=== PATIENT | male | born 1995 | race Caucasian/White ===

== ENCOUNTER 2023-04-20 17:03 | Emergency (ER) | payer SELFPAY ==
[2023-04-20 17:32] VITALS: TEMP 98.1; BMI 24.3
[2023-04-20] MEDS ORDERED: ACETAMINOPHEN 1000 MG/100 ML BAG IVPB ONE (17:57)
[2023-04-20 18:29] LABS: BASO % 0.3 % (0-2.0); EOS % 0.1 % (0-4.5); HEMATOCRIT 45.8 % (35.4-49); HEMOGLOBIN 15.8 GM/dL (11.7-16.9); LYMPH % 11.6 % (8-40); MCH 30.7 pg (25.7-33.7); MCHC 34.4 g/dl (32.0-35.9); MEAN CELL VOLUME 89.2 fl (80-96); MEAN PLT VOLUME 8.7 fl (7.5-11.1); MONO % 4.4 % (3.8-10.2); NEUT % 83.6 % (42.8-82.8); PLATELET COUNT 185 10^3/uL (134-434); RBC 5.13 M/mm3 (4.00-5.60); RDW 13.3 % (11.9-15.9); WHITE BLOOD COUNT 8.6 K/mm3 (4.0-10.0)
[2023-04-20 18:54] LABS: POTASSIUM 3.8 mmol/L (3.5-5.1)
[2023-04-20 18:56] LABS: ALBUMIN 4.2 g/dl (3.4-5.0); BLOOD UREA NITROGEN 16.4 mg/dL (7-18); CALCIUM 9.3 mg/dL (8.5-10.1)
[2023-04-20 18:58] LABS: CREATININE 1.2 mg/dL (0.55-1.3)
[2023-04-20 19:00] LABS: BILIRUBIN,TOTAL 0.3 mg/dL (0.2-1); TOT PROT 8.3 g/dl (6.4-8.2)
[2023-04-20] MEDS ORDERED: VALPROATE SODIUM 500 MG/5 ML VIAL IVPB ONE (19:05)
[2023-04-20] MEDS ORDERED: VALPROATE SODIUM 500 MG/5 ML VIAL ONE (19:18)
[2023-04-20 20:56] VITALS: BP 122/76; PULSE 82; RESP 18
== END 2023-04-20 21:19 | disposition home or self-care (01) ==
LOC: EDBD → JER 17:03
PROC: 3E033NZ Introduction of Analgesics, Hypnotics, Sedatives into Peripheral Vein, Percutaneous Approach (ICD-10-PCS; principal; 2023-04-20)
PROC: 3E033GC Introduction of Other Therapeutic Substance into Peripheral Vein, Percutaneous Approach (ICD-10-PCS; 2023-04-20)
DX: G40.909 Epilepsy, unspecified, not intractable, without status epilepticus (principal)
CPT/HCPCS: 36415; 80053; 80164; 80184; 85025; 99284-25

== ENCOUNTER 2023-04-25 12:49 | Emergency (ER) | payer SELFPAY ==
[2023-04-25 12:56] VITALS: BP 118/67; PULSE 75; RESP 18; TEMP 98.2; BMI 24.6
== END 2023-04-25 14:21 | disposition home or self-care (01) ==
LOC: EDBD 12:49 → JERFT 12:49
DX: Z76.0 Encounter for issue of repeat prescription (principal)
CPT/HCPCS: 99281-25

== ENCOUNTER 2023-04-28 08:40 | Emergency (ER) | payer SELFPAY ==
[2023-04-28 08:46] VITALS: BMI 23.1
[2023-04-28] MEDS ORDERED: DIVALPROEX SODIUM 250 MG TABLET E.C. PO ONE (09:21)
[2023-04-28] MEDS ORDERED: DIVALPROEX SODIUM 250 MG TABLET E.C. ONE (09:23)
[2023-04-28] MEDS ORDERED: ACETAMINOPHEN 325 MG TABLET (FP) PO ONE (09:58)
[2023-04-28] MEDS ORDERED: ACETAMINOPHEN 325 MG TABLET (FP) ONE (10:04)
[2023-04-28 10:23] VITALS: RESP 18; TEMP 97.6
[2023-04-28 12:59] VITALS: BP 130/68; PULSE 71
== END 2023-04-28 13:00 | disposition home or self-care (01) ==
LOC: JER 08:40
DX: R07.9 Chest pain, unspecified (principal); G40.909 Epilepsy, unspecified, not intractable, without status epilepticus
CPT/HCPCS: 70450-TC; 93005; 93010; 99284-25

== ENCOUNTER 2023-05-16 16:41 | Emergency (ER) | payer OTHER ==
[2023-05-16 17:03] VITALS: BP 123/77; PULSE 96; RESP 16; TEMP 98.3; BMI 28.2
== END 2023-05-16 18:17 | disposition home or self-care (01) ==
LOC: JERFT 16:41
DX: Z76.0 Encounter for issue of repeat prescription (principal)
CPT/HCPCS: 99281-25